=== PATIENT | male | born 1960 | race Hispanic/Latino ===

== ENCOUNTER 2017-01-25 18:55 | Inpatient (IN) | payer MEDICAID ==
[2017-01-25 18:55] VITALS: BMI 29.7
[2017-01-25 19:57] LABS: BASO # 0.1 K/uL (0.0-0.2); BASO % 0.8 % (0.0-2.0); EOS # 0.5 K/uL (0.0-0.7); EOS % 5.7 % (0.0-4.0); HEMATOCRIT 45.2 % (35.0-51.0); LYMPH # 1.8 K/uL (1.0-4.3); LYMPH % 21.2 % (20.0-40.0); MEAN CELL VOLUME 90.5 fL (80.0-94.0); MEAN CORPUSCULAR HEMOGLOBIN 30.7 pg (27.0-31.0); MEAN CORPUSCULAR HGB CONC 33.9 g/dL (33.0-37.0); MEAN PLATELET VOLUME 8.9 fL (7.2-11.7); MONO # 0.4 K/uL (0.0-0.8); MONO % 4.4 % (0.0-10.0); RED CELL DISTRIBUTION WIDTH 13.1 % (11.5-14.5); WHITE BLOOD COUNT 8.7 K/uL (4.8-10.8)
[2017-01-25 20:15] LABS: CHLORIDE 103 mmol/L (98-107); SODIUM 142 mmol/L (132-148)
[2017-01-25 20:16] LABS: POTASSIUM 3.8 mmol/L (3.6-5.2)
[2017-01-25 20:18] LABS: ALB/GLOB RATIO 1.3 (1.0-2.1); ALKALINE PHOSPHATASE 64 U/L (38-126); ALT/SGPT 54 U/L (21-72); AST/SGOT 26 U/L (17-59); BILIRUBIN,TOTAL 0.5 mg/dL (0.2-1.3); BLOOD UREA NITROGEN 13 mg/dL (9-20); CALCIUM 8.5 mg/dl (8.6-10.4); CARBON DIOXIDE 28 mmol/L (22-30); GFR AFRICAN-AMERICAN > 60; GLUCOSE,RANDOM 113 mg/dL (75-110); TOTAL PROTEIN 7.2 g/dL (6.3-8.3)
[2017-01-25 20:19] LABS: ALCOHOL SERUM < 10 mg/dl (0-10)
--- NOTE | 2017-01-25 20:21 | C.PDOC ---
History Of Present Illness 56 y/o male, with PMHx of alcohol abuse, presents to the ED after being prescreened for detox. Patient admits to drinking prior to arrival as well as using heroin and crack cocaine.Otherwise, he denies suicidal/homicidal ideation and has no other physical complaints at this time. Time Seen by Provider: 01/25/17 19:38 Chief Complaint (Nursing): Substance Abuse History Per: Patient History/Exam Limitations: intoxication Onset/Duration Of Symptoms: Hrs Current Symptoms Are (Timing): Still Present Suicide/Self Injury Attempted (Context): None Modifying Factor(s): Alcohol, Crack, Other (heroin ) Associated Symptoms: denies: Suicidal Thoughts, Suicidal Plan Involuntary Hold By: None Recent travel outside of the [place]: No Additional History Per: Patient Past Medical History Reviewed: Historical Data, Nursing Documentation, Vital Signs Vital Signs: Last Vital Signs Temp 97.9 F 01/25/17 21:24 Pulse 64 01/25/17 21:24 Resp 20 01/25/17 21:24 BP 140/80 01/25/17 21:24 Pulse Ox 96 01/25/17 21:24 - Medical History PMH: Depression, HTN, Hypercholesterolemia, Hyperlipidemia Denies: Diabetes, Hepatitis, HIV, Chronic Kidney Disease, Seizures, Sexually Transmitted Disease Surgical History: Coronary Stent - [facility] Procedures CORONAR ARTERIOGR-2 CATH (08/16/05) INJECT/INFUSE NEC (12/20/03) LEFT HEART CARDIAC CATH (08/16/05) LT HEART ANGIOCARDIOGRAM (08/16/05) Family History: States: Unknown Family Hx - Social History Hx Alcohol Use: Yes (beer) Hx Substance Use: Yes (oxycodone, percocet, xanax) - Immunization History Hx Tetanus Toxoid Vaccination: No Hx Influenza Vaccination: No Hx Pneumococcal Vaccination: No Review Of Systems Constitutional: Positive for: Other (+ETOH intoxication ) Physical Exam - Physical Exam Appears: Non-toxic, No Acute Distress Skin: Normal Color, Warm, Dry Head: Atraumatic, Normacephalic Eye(s): bilateral: Normal Inspection Oral Mucosa: Moist, Other (+alcohol on breath ) Neck: Supple Chest: Symmetrical, No Deformity, No Tenderness Cardiovascular: Rhythm Regular, No Murmur Respiratory: Normal Breath Sounds, No Rales, No Rhonchi, No Wheezing Extremity: Normal ROM, Capillary Refill (less than 2 seconds ) Neurological/Psych: Normal Speech, Normal Cognition, Other (awake, alert, and arousable to touch and verbal stimuli ) Gait: Unsteady ED Course And Treatment - Laboratory Results Result Diagrams: 01/25/17 19:52 01/25/17 19:52 O2 Sat by Pulse Oximetry: 96 (on RA) Pulse Ox Interpretation: Normal Medical Decision Making Medical Decision Making: Impression: 56y/o male presents for detox Progress: labs ordered and reviewed. 20:41: Patient has been medically cleared for detox. Disposition - Disposition Disposition: HOSPITALIZED Disposition Time: 21:27 Condition: STABLE Forms: [facility] ([place]) - Clinical Impression Clinical Impression: Drug abuse - Scribe Statement The provider has reviewed the documentation as recorded by the Scribe (Sherry Stone) Provider Attestation: All medical record entries made by the Scribe were at my direction and personally dictated by me. I have reviewed the chart and agree that the record accurately reflects my personal performance of the history, physical exam, medical decision making, and the department course for this patient. I have also personally directed, reviewed, and agree with the discharge instructions and disposition. Decision To Admit - Pt Status Changed To: Hospital Disposition Of: Inpatient - Admit Certification Admit to Inpatient:: After my assessment, the patient will require hospitalization for at least two midnights. This is because of the severity of symptoms shown, intensity of services needed, and/or the medical risk in this patient being treated as an outpatient. - InPatient: Physician Admission Certification: I certify that this patient requires 2 or more midnights of care for the following reason:: PT NEEDS detox - . Bed Request Type: Detox Admitting Physician: Poli Baca Patient Diagnosis: Drug abuse
[2017-01-25 20:23] LABS: RBC URINE < 1 /hpf (0-3); URINE BACTERIA RARE (<OCC); URINE BILIRUBIN 1+ (NEGATIVE); URINE BLOOD NEGATIVE (NEGATIVE); URINE COLOR Yellow (YELLOW); URINE GLUCOSE (UA) NORMAL (Normal); URINE KETONE NEGATIVE (NEGATIVE); URINE LEUKOCYTE ESTERASE NEG Leu/uL (Negative); URINE PROTEIN NEGATIVE (NEGATIVE); URINE UROBILINOGEN NORMAL mg/dL (0.2-1.0); WBC URINE 1 /hpf (0-5)
--- NOTE | 2017-01-25 21:58 | PCM.BM ---
<Radha Byrnes - Last Filed: 01/25/17 21:56> Treatment Plan Problems - Problems identified on initial assessmt potiential for opiate withdrawal Date Initiated: 01/25/17 Time Initiated: 21:58 Assessment reference: NA Status: Active potiential for anxiolytic withdrawal Date Initiated: 01/25/17 Time Initiated: 21:58 Assessment reference: NA Status: Active Treatment assets and liabiliti Patient Assests: ADL independent, cognitively intact Patient Liabilities: substance abuse, medical problems - Milieu Protocol Maintain good personal hygiene: daily Encourage regular showers, daily Remind patient to perform daily oral care, daily Assist patient to perform ADL's Maintain personal safety: every shift Educate patient to report safety concerns to staff, every shift Monitor environment for contraband/sharps Medication safety: Monitor for expected outcome, potential side effects: every shift, Assess barriers to learning: every shift, Assess readiness for medication education: every shift <Veda Redmond - Last Filed: 01/26/17 15:04> Family Contact Family involvement: Famliy/SO not involved Family contact: Patient agrees to contact - Goals for Treatment Patient goals for treatment: Complete detox and transition to [facility] for short-term rehab. Discharge/Continuing Care - Education Needs Education Needs: Patient Medication, Patient Diagnosis/Disease Process, Patient Coping Skills, Patient Anger Management skills, Patient Placement options, Patient Community resources - Discharge Discharge Criteria: Normal sleep pattern, No longer exhibiting s/s of withdrawal , Reduction of target symptoms Discharge to:: Substance Abuse Rehab - Treatment Team Participation Patient/Family/SO Statement: 01/26/17 15:05 "After detox, I wanna go to the [facility] for rehab. I already called them before I came in here..." Discussed with Family/SO: No Was Patient/Family/SO present at Treatment Team Meeting: Yes <Alessandra Guo - Last Filed: 01/26/17 19:55> - Diagnosis (1) Opioid use disorder, severe, dependence Status: Acute Interventions: 01/26/17 19:54 * Assess 7x/week regarding severity of withdrawal * Educate regarding risks, benefits, side effects and alternatives of medications * Use Motivational Interviewing for abstinence * Use CBT for relapse prevention * Medication management for withdrawal symptoms * Encourage medication assisted treatment * (2) Sedative, hypnotic or anxiolytic use disorder, severe, dependence Status: Acute Interventions: 01/26/17 19:54 * Assess 7x/week regarding severity of withdrawal * Educate regarding risks, benefits, side effects and alternatives of medications * Use Motivational Interviewing for abstinence * Use CBT for relapse prevention * Medication management for withdrawal symptoms * Encourage medication assisted treatment *
[2017-01-25] MEDS ORDERED: Aluminum Hydroxide/Magnesium Hydroxide Susp (30 mL) PO PRN (23:27)
[2017-01-26] MEDS: Bisoprolol-HCTZ 5-6.25 mg Tab PO SCH (10:57)
--- NOTE | 2017-01-26 15:20 | PCM.PSYCH ---
Initial Psychiatric Evaluation - Initial Psychiatric Evaluation Type of Admission: Voluntary Legal Status: Capacity Chief Complaint (in patient's own words): "I need detox" Patient's Reaction to Hospitalization: Patient is a 56 year old male, single, from his , with 4 children (ages 26, 33, 34, 36), living alone in [place] (in his mother's apartment), currently unemployed and financially dependent on his and mother. He states that he is in touch with his children and they are all doing very well, and his comes to check on him occasionally. 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 He recognizes that he gets bored and has been looking for jobs but states that he' s having trouble finding a place that's hiring. Patient is here today because he wants to detox from the substances he's using. Patient reports a 10 month history of heroin use (snorting or smoking only, has never used IV). He started using 3-4 bags/day, increased to 6-8 bags/day, and has more recently cut back down to 3-4 bags/day. His longest period of sobriety was for 50-60 days. Patient started using Xanax in 2004 for two years (prescribed by a psychiatrist) , and then got it off the street off and on. More recently he has been using 8mg Xanax per day. He also reports recently smoking crack. He notes that yesterday he took "a couple sips" of methadone. Patient reports drinking 4-5 12oz bottles of beer on and off since he started drinking many years ago. He denies drinking hard liquor. He states that he has gone through periods of drinking, sometimes binging on weekends, and then stopping on his own. He states he never felt that drinking was a "problem" and he could always stop if he wanted to. His last drink was two weeks ago; he states he stopped drinking because he was informed that his liver enzymes were elevated. Patient last used marijuana 30 years ago. Denies use of any other substances. Patient states that he was in detox at [facility] a couple of weeks ago but relapsed because there was no set-up for after care. He otherwise denies past history of detox or rehab. Regarding withdrawal symptoms, patient states that his stomach is bothering him and he feels "the shakes." Denies seizure. Patient has a history of depression, and was previously taking Ativan and Paxil but stopped last month. He saw a psychiatrist in 2004 for 2 years, at which time he was prescribed Xanax (as noted above). Psychiatric history: depression Drug use: noted above ETOH: noted above Tobacco: denies Medical history: HTN hypercholesterolemia Denies: DM, asthma, Hepatitis C, seizures Surgical history: Stent 12 years ago Medications: Aspirin 81mg Ziac Family history: Brother is daily heroin user Denies psych illness/substance use in any other family members Social history: Single, from 4 children (ages 26, 33, 34, 36) Lives alone in apartment in [place] owned by his mother Unemployed, financially supported by and mother Not on parole/probation Current Medications: Active Medications Generic Name Dose Route Start Last Admin Trade Name Freq PRN Reason Stop Dose Admin Acetaminophen 650 mg 01/25/17 23:27 01/26/17 14:35 Tylenol 325mg Tab PO 650 mg Q4H PRN Administration Fever greater than 101 F Al Hydrox/Mg Hydrox/Simethicone 30 ml 01/25/17 23:27 Maalox 30 Ml PO TID PRN Indigestion / Heartburn Aspirin 81 mg 01/26/17 10:00 01/26/17 10:56 Aspirin Chewable PO 81 mg DAILY LAQUITA Administration Bisoprolol Fumarate/HCTZ 1 tab 01/26/17 10:00 01/26/17 10:57 Ziac 5-6.25 Mg PO 1 tab DAILY LAQUITA Administration Chlordiazepoxide 25 mg 01/26/17 09:04 Librium PO 01/30/17 09:05 Q4H PRN Alcohol Withdrawal Chlordiazepoxide 50 mg 01/26/17 12:00 01/26/17 11:00 Librium PO 01/30/17 11:59 50 mg Q6 LAQUITA Administration Taper Clonidine HCl 0.1 mg 01/25/17 23:27 Catapres PO Q8 PRN COWS Score More or Equal to 5 Gabapentin 300 mg 01/26/17 10:00 01/26/17 13:43 Neurontin PO 300 mg TID LAQUITA Administration Hydroxyzine HCl 25 mg 01/25/17 23:52 01/25/17 23:57 Atarax PO 25 mg Q8H PRN Administration Anxiety Loperamide HCl 2 mg 01/25/17 23:27 Imodium PO Q8 PRN Diarrhea Ondansetron HCl 4 mg 01/25/17 23:27 Zofran Tab PO Q8 PRN Nausea/Vomiting Pseudoephedrine HCl 60 mg 01/25/17 23:27 Sudafed Tab PO QID PRN Nasal/Sinus Congestion Trazodone HCl 100 mg 01/25/17 22:39 01/25/17 23:57 Desyrel PO 100 mg HS PRN Administration insomnia Past Psychiatric History - Past Psychiatric History Previous Treatment History: None Pertinent Medical Hx (Current Medical&Sleep Prob, Allergies): Allergies Allergy/AdvReac Type Severity Reaction Status Date / Time No Known Allergies Allergy Verified 09/03/15 14:43 ARIPiprazole [Abilify] 5 mg PO DAILY #0 tab 09/09/15 Aspirin [Ecotrin] 81 mg PO DAILY #0 tabec 09/09/15 Bisoprolol/HCTZ [Ziac 5-6.25 mg] 1 tab PO DAILY #0 tab 09/09/15 Folic Acid 1 mg PO DAILY #0 tab 09/09/15 LORazepam [Ativan] 2 mg PO HS #0 tab 09/09/15 Mirtazapine [Remeron] 15 mg PO HS #0 tab 09/09/15 Multivitamin Therapeutic Tab [Thera Tab] 1 tab PO DAILY #0 tab 09/09/15 PARoxetine [Paxil] 20 mg PO HS #0 tab 09/09/15 Thiamine [Vitamin B1 Tab] 100 mg PO DAILY #0 tab 09/09/15 Review of Systems - Neurological Neurological: UNREMARKABLE - Psychiatric Psychiatric: Abnormal Sleep Pattern, Anxiety, Depression. absent: Hallucinations, Homicidal Ideation, Suicidal Ideation Mental Status Examination - Personal Presentation Personal Presentation: Looks stated age - Affect Affect: Constricted - Motor Activity Motor Activity: Calm - Reliability in Providing Information Reliability in Providing Information: Good - Speech Speech: Organized - Mood Mood: Depressed - Formal Thought Process Formal Thought Process: No Impairment - Cognitive Functions Orientation: Person, Place, Situation, Time Sensorium: Drowsy Attention/Concentration: Attentive Abstract Thinking: [place] Estimate of Intelligence: Average Judgement: Intact, as evidence by: Insight regarding need for hospitalization Memory: Recent intact, as evidence by: Ability to recall events of the day, Remote intact, as evidenced by: Abilit to recall sig. life events - Risk Risk: Withdrawal, Diminished functioning - Strength & Assets Inventory Strength & Assets Inventory: Family support, Cooperative - Limitations Limitations: Living alone DSM 5 DX - DSM 5 DSM 5 Diagnosis: Sedative-hypnotic or anxiolytic use disorder Sedative-hypnotic or anxiolytic withdrawal Opioid use disorder Opioid withdrawal Depressive d/o - unspecified - Recommended/Plan of Treatment Treatment Recommendations and Plan of Treatment: Librium detox Gabapentin for augmentation As needed meds and vitamins Attend groups and activities [place] for abstinence and CBT for relapse prevention Support and psychoeducation Consider and encourage MAT Refer to after care 34 minutes Projected ELOS: 4-5 days Prognosis: good w treatment
[2017-01-27] MEDS: Bisoprolol-HCTZ 5-6.25 mg Tab PO SCH (09:14)
--- NOTE | 2017-01-27 15:00 | PCM.PYCHPN ---
Psychiatric Progress Note - Psychiatric Progress Note Patient seen today, length of contact: 16 minutes Patient Chief Complaint: "My first day was alright" Problems Identified/Issues Discussed: The patient is seen, chart reviewed, case discussed with staff. The patient is compliant with medications and reports no side effects. Patient states that he's doing alright. He slept for about 5-6 hours. He denies withdrawal symptoms, including nausea, vomiting and diarrhea. He just states that his stomach is bothering him a little and he feels anxious but he "always gets that." Symptoms are improving but patient needs more time to stabilize. After care discussed--patient states that he wants to go to [facility] and will call today. Support and psychoeducation given. Medication Change: Yes (detox changes daily; start methadone detox) Medical Record Reviewed: Yes Mental Status Examination - Cognitive Function Orientation: Person, Place, Situation, Time Memory: Intact Attention: WNL Concentration: WNL Association: WNL Fund of Knowledge: WNL - Mood Mood: Depressed - Affect Affect: Constricted - Speech Speech: Appropriate - Formal Thought Process Formal Thought Process: No Impairment - Suicidal Ideation Suicidal Ideation: No - Homicidal Ideation Homicidal Ideation: No Goal/Treatment Plan - Goal/Treatment Plan Need for Continued Stay: Remain at risks for inpatient hospitalization Progress Toward Problem(s) and Goals/Treatment Plan: Librium detox Gabapentin for augmentation As needed meds and vitamins Attend groups and activities [place] for abstinence and CBT for relapse prevention Support and psychoeducation Consider and encourage MAT Refer to after care Methadone detox As needed medications Gabapentin for augmentation Attend groups and activities Supportive therapy and psychoeducation [place] for abstinence CBT for relapse prevention Encourage MAT Refer to rehab or IOP Attend self-help groups as well
[2017-01-28] MEDS: Bisoprolol-HCTZ 5-6.25 mg Tab PO SCH (09:46)
--- NOTE | 2017-01-28 15:54 | PCM.PYCHPN ---
Psychiatric Progress Note - Psychiatric Progress Note Patient seen today, length of contact: 15 minutes Patient Chief Complaint: "I'm hangin' in there" Problems Identified/Issues Discussed: The patient was seen, chart reviewed, case discussed with staff. The patient is compliant with medications and reports no side effects. He states that he's "hanging in there." He slept about 5 hours last night. Patient only complains that he has been constipated recently, but had two bowel movements today. He denies withdrawal symptoms including vomiting, sweating, shaking, skin itching, visual/auditory hallucinations, heart racing, runny nose and watery eyes. Patient states that he is 100% confident that he won't go back to using. He states that the only reason he ever used heroin was to calm himself down after smoking crack. He states that he now understands that smoking crack could give him a heart attack, and he realizes now that he shouldn't choose drugs over his family and friends. He states that he knows he has to learn how to manage his anxiety and seek help if needed. Symptoms are improving, but patient needs more time to stabilize. After care discussed, support and psychoeducation given. Medication Change: Yes (detox changes daily) Medical Record Reviewed: Yes Mental Status Examination - Cognitive Function Orientation: Person, Place, Situation, Time Memory: Intact Attention: WNL Concentration: WNL Association: WNL Fund of Knowledge: WNL - Mood Mood: Depressed - Affect Affect: Constricted - Speech Speech: Appropriate - Formal Thought Process Formal Thought Process: No Impairment - Suicidal Ideation Suicidal Ideation: No - Homicidal Ideation Homicidal Ideation: No Goal/Treatment Plan - Goal/Treatment Plan Need for Continued Stay: Remain at risks for inpatient hospitalization, Discharge may exacerbated symptoms Progress Toward Problem(s) and Goals/Treatment Plan: Librium detox Gabapentin for augmentation As needed meds and vitamins Attend groups and activities [place] for abstinence and CBT for relapse prevention Support and psychoeducation Consider and encourage MAT Refer to after care Methadone detox As needed medications Gabapentin for augmentation Attend groups and activities Supportive therapy and psychoeducation [place] for abstinence CBT for relapse prevention Encourage MAT Refer to rehab or IOP Attend self-help groups as well
[2017-01-29] MEDS: Bisoprolol-HCTZ 5-6.25 mg Tab PO SCH (09:57)
--- NOTE | 2017-01-29 11:19 | PCM.PYCHPN ---
Psychiatric Progress Note - Psychiatric Progress Note Patient seen today, length of contact: 15 minutes Patient Chief Complaint: 'I am feeling depressed.' Problems Identified/Issues Discussed: Patient seen and evaluated, chart reviewed and discussed with the nurse. Supportive therapy and psychoeducation were given. Patient reports depressed mood, poor sleep and still reports withdrawal symptoms including, cramps, nausea, anxiety and headaches. He denies any suicidal ideation or homicidal ideation or any auditory or visual hallucinations. He reports that he was on paxil for depression. He is tolerating the withdrawal medications and denies any side effects. Medication Change: Yes (detox changes daily, start paxil, start buspar) Medical Record Reviewed: Yes Mental Status Examination - Cognitive Function Orientation: Person, Place, Situation, Time Memory: Intact Attention: WNL Concentration: WNL Association: WNL Fund of Knowledge: Poor - Mood Mood: Depressed, Anxious - Affect Affect: Constricted - Speech Speech: Appropriate - Formal Thought Process Formal Thought Process: No Impairment - Suicidal Ideation Suicidal Ideation: No - Homicidal Ideation Homicidal Ideation: No Goal/Treatment Plan - Goal/Treatment Plan Need for Continued Stay: Remain at risks for inpatient hospitalization, Discharge may exacerbated symptoms Progress Toward Problem(s) and Goals/Treatment Plan: Librium detox Gabapentin for augmentation As needed meds and vitamins Attend groups and activities [place] for abstinence and CBT for relapse prevention Support and psychoeducation Consider and encourage MAT Refer to after care Methadone detox As needed medications Gabapentin for augmentation Attend groups and activities Supportive therapy and psychoeducation [place] for abstinence CBT for relapse prevention Encourage MAT Refer to rehab or IOP Attend self-help groups as well Depressive disorder Start Paxil 20 mg PO Q Daily Start Buspar 10 mg PO BID - Smoking Cessation Smoking Cessation Initiated: No
[2017-01-30] MEDS: Bisoprolol-HCTZ 5-6.25 mg Tab PO SCH (10:06)
--- NOTE | 2017-01-30 11:44 | PCM.PYCHPN ---
Psychiatric Progress Note - Psychiatric Progress Note Patient seen today, length of contact: 15 minutes Patient Chief Complaint: 'I am feeling anxious.' Problems Identified/Issues Discussed: Patient seen and evaluated, chart reviewed and discussed with the nurse. Patient reports a bit improvement in his anxiety and depression. He is still reporting irritable mood andvwithdrawal symptoms including, back pain, anxiety and headaches. He denies any suicidal ideation or homicidal ideation or any auditory or visual hallucinations. He is taking the medications and denies any side effects. Medication Change: Yes (detox changes daily,) Medical Record Reviewed: Yes Mental Status Examination - Cognitive Function Orientation: Person, Place, Situation, Time Memory: Intact Attention: WNL Concentration: WNL Association: WNL Fund of Knowledge: Poor - Mood Mood: Depressed, Anxious - Affect Affect: Constricted - Speech Speech: Appropriate - Formal Thought Process Formal Thought Process: No Impairment - Suicidal Ideation Suicidal Ideation: No - Homicidal Ideation Homicidal Ideation: No Goal/Treatment Plan - Goal/Treatment Plan Need for Continued Stay: Remain at risks for inpatient hospitalization, Discharge may exacerbated symptoms Progress Toward Problem(s) and Goals/Treatment Plan: Librium detox Gabapentin for augmentation As needed meds and vitamins Attend groups and activities [place] for abstinence and CBT for relapse prevention Support and psychoeducation Consider and encourage MAT Refer to after care Methadone detox As needed medications Gabapentin for augmentation Attend groups and activities Supportive therapy and psychoeducation [place] for abstinence CBT for relapse prevention Encourage MAT Refer to rehab or IOP Attend self-help groups as well Depressive disorder Paxil 20 mg PO Q Daily Buspar 10 mg PO BID - Smoking Cessation Smoking Cessation Initiated: No
--- NOTE | 2017-01-31 08:54 | PCM.PYCHDC ---
Mental Status Examination - Mental Status Examination Orientation: Person, Place, Situation, Time Memory: Intact Mood: Neutral Affect: Constricted Speech: Appropriate Attention: WNL Concentration: WNL Association: WNL Fund of Knowledge: WNL Formal Thought Process: No Impairment Suicidal Ideation: No Current Homicidal Ideation?: No Discharge Summary - Discharge Note Reason for Hospitalization: Detox from benzos and heroin. Psychiatric History (includes Medical, Family, Personal Hx): History of substance use disorder and depression Consultations:: List each consultation separately and include: 1. Reason for request. 2. Findings. 3. Follow-up Summary of Hospital Course include:: 1. Description of specific treatment plan utilized for patients during their course of treatmen. 2. Summarize the time- course for resolution of acute symptoms and/or regressed behaviors. 3. Describe issues identified and worked on during hospitalization. 4. Describe medication utilized. 5. Describe medical problems identified and treated. 6. Reassessment of suicide risk Summary of Hospital Course: The patient was admitted and started on treatment with psychotherapy, support, psychoeducation and medications. AK and CBT used. The patient attended groups and activities, as well as milieu therapy. All the risks and benefits of medications are discussed and the patient understood and agreed. The patient improved with the treatments provided. Patient states that he feels good and denies any current withdrawal symptoms. He expresses that he feels ready to leave. He was pleasant in general. After care discussed with the patient. He is accepted by the [facility] and will start today. 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 Follow after care plan as discussed. Use relapse prevention skills. Return to ED or call 911 if suicidal, homicidal or symptoms relapse. Stay away from stress, alcohol and drugs. See primary doctor once a year. Prescriptions/Medication Reconciliation: busPIRone [Buspar] 10 mg PO BID PRN #60 tab PRN Reason: Agitation Gabapentin [Neurontin] 300 mg PO TID #90 cap PARoxetine [Paxil] 20 mg PO DAILY #30 tab traZODone [Desyrel] 100 mg PO HS PRN #30 tab PRN Reason: insomnia - Smoking Cessation Smoking Cessation Medication prescribed: No - Antipsychotic Medications Pt discharged on 2 or more routine antipsychotic medications: No
[2017-01-31] MEDS: Bisoprolol-HCTZ 5-6.25 mg Tab PO SCH (09:33)
[2017-01-31 10:17] VITALS: BP 142/81; PULSE 76; RESP 18; TEMP 97.6; O2SAT 96
== END 2017-01-31 12:00 | DRG 745 ==
LOC: C.ER 18:55 → C.7D 21:09
PROVIDERS: ADMIT Psychiatry & Neurology Psychiatry; ATTEND Psychiatry & Neurology Psychiatry
PROC: HZ2ZZZZ Detoxification Services for Substance Abuse Treatment (ICD-10-PCS; principal; 2017-01-25)
PROC: HZ59ZZZ Individual Psychotherapy for Substance Abuse Treatment, Supportive (ICD-10-PCS; 2017-01-25)
PROC: HZ59ZZZ Individual Psychotherapy for Substance Abuse Treatment, Supportive (ICD-10-PCS; 2017-01-25)
PROC: GZ3ZZZZ Medication Management (ICD-10-PCS; 2017-01-25)
DX: F11.23 Opioid dependence with withdrawal (principal); F13.230 Sedative, hypnotic or anxiolytic dependence with withdrawal, uncomplicated; F32.9 Major depressive disorder, single episode, unspecified; I10 Essential (primary) hypertension; E78.00 Pure hypercholesterolemia, unspecified; E78.5 Hyperlipidemia, unspecified; F41.9 Anxiety disorder, unspecified; Z95.5 Presence of coronary angioplasty implant and graft